=== PATIENT | female | born 1980 | race Hispanic/Latino ===

== ENCOUNTER 2018-03-22 13:37 | Emergency (ER) | payer OTHER ==
[2018-03-22] MEDS ORDERED: IBUPROFEN 600 MG TABLET ONE (15:11)
== END 2018-03-22 15:46 | disposition home or self-care (01) ==
LOC: EDH 13:37
DX: M79.602 Pain in left arm (principal); M54.2 Cervicalgia; M25.532 Pain in left wrist; V49.59XA Passenger injured in collision with other motor vehicles in traffic accident, initial encounter; Y93.89 Activity, other specified; Y92.89 Other specified places as the place of occurrence of the external cause; Y99.8 Other external cause status
CPT/HCPCS: 72040; 73020; 73110; 73130; 81025